=== PATIENT | male | born 1950 | race Two or more races ===

== ENCOUNTER 2024-03-27 15:38 | Emergency (ER) | payer MEDICARE, OTHER, SELFPAY ==
[2024-03-27 15:43] VITALS: BP 127/90
[2024-03-27 16:55] VITALS: BMI 29.8
[2024-03-27 16:57] VITALS: BP 121/98
[2024-03-27 17:00] VITALS: BP 128/93
--- NOTE | 2024-03-27 17:11 | EDRN ---
Pt brought to ER room from triage in wheelchair. Pt reports feeling SOB at rest that worsens with activity. Pt reports that he have been feeling like he is unable to catch his breath, pt placed on 1 L NC for comfort. Pt sating at 98% on RA, but
reports feeling like her is unable to catch his breath. Repeat EKG order d/t marlen noted on tele monitor.
[2024-03-27 17:18] LABS: % Basophils 0.6 % (0-2); % Eosinophils 0.1 % (0-6); % Immature Granulocytes 0.2 % (0-0.5); % Lymphocytes 32.3 % (20.5-51.1); % Monocytes 6.2 % (1.7-9.3); % Neutrophils 60.6 % (42.2-75.2); Absolute Basophils 0.1 10^3/uL (0-0.2); Absolute Lymphocytes 2.7 10^3/uL (1.2-3.4); Absolute Monocytes 0.5 10^3/uL (0.1-0.6); Absolute Neutrophils 5.1 10^3/uL (1.4-6.5); Hematocrit 46.3 % (39.0-52.0); Hemoglobin 17.3 g/dL (13.0-18.0); Mean Corp Hgb Conc. 37.4 g/dL (33.0-37.0); Mean Corpuscular Hgb 33.1 pg (27.0-31.0); Mean Corpuscular Volume 88.7 fL (80.0-94.0); Mean Platelet Volume 9.2 fL (7.4-10.4); Nucleated Red Blood Cells % 0 % (-); Platelet Count 275 10^3/uL (130-400); Red Blood Cell Count 5.22 10^6/uL (4.70-6.10); Red Cell Dist. Width 12.3 % (11.5-14.5); White Blood Cell Count 8.4 10^3/uL (4.8-10.8)
[2024-03-27 17:37] LABS: NT-proBNP 358 pg/ml
[2024-03-27 17:42] LABS: ALT (SGPT) 23 U/L (0-50); AST (SGOT) 30 U/L (17-59); Albumin 4.3 g/dl (3.5-5.0); Alkaline Phosphatase 62 U/L (38-126); Blood Urea Nitrogen 14 mg/dl (9-20); Calcium 9.6 mg/dl (8.4-10.2); Carbon Dioxide 19 mmol/L (22-30); Chloride 107 mmol/L (98-107); Estimated Creatinine Clearance 86 ml/min; Glucose 103 mg/dl (70-99); Potassium 4.1 mmol/L (3.5-5.1); Sodium 136 mmol/L (135-145); Total Bilirubin 1.2 mg/dl (0.2-1.3); eGFR > 60.00
[2024-03-27 17:46] LABS: Troponin I < 0.012 ng/ml
[2024-03-27 17:58] LABS: TSH Reflex To Free T4 1.13 uIU/ml (0.47-4.68)
--- NOTE | 2024-03-27 18:15 | ED.GENMED ---
History of Present Illness
General
Chief Complaint: Heart Rate Problem
Source: patient
Exam Limitations: none
Time Seen by Provider: 03/27/24 18:00
History of Present Illness
History of Present Illness:
73-year-old male with history of paroxysmal atrial fibrillation presents feeling as though he went into an episode of atrial fibrillation this morning after his couple coffee. He states he felt a rapid heartbeat and was short of breath. His smart
watch told him he was in atrial fibrillation. He is not anticoagulated. He follows with [facility] cardiology. He denies chest pain. He states that the current time of my exam he feels fine. He does not feel palpitations or
shortness of breath. He denies chest pain. No other complaints at this time. He denies any recent travel or surgery no leg swelling or calf pain
Past History
Past History
ED Past Medical History: Arrthythmia and HTN (Previously)
ED Past Surgical History: Cholecystectomy and Orthopedic
Social History
Tobacco: Non-smoker
Employment: Retired
Family History
Family History: Negative Early CAD
Phy Exam
Physical Exam
Physical Exam:
General: Well-appearing male no acute respiratory distress
HEENT: Normocephalic atraumatic
Heart: Regular rate and rhythm no murmurs
Lungs: Clear no wheeze
Extremities: No cyanosis or edema
Skin: Warm no rash
Course
Orders/Labs/Results
Orders:
Orders
03/27/24 15:45
ECG [Electrocardiogram (*1)] Urgent
Reason for Study: Shortness of Breath
EKG- Treatment ONCE
03/27/24 17:04
Complete Blood Count/With Diff Urgent
Comprehensive Metabolic Panel Urgent
Pro-BNP [NT-proBNP] Urgent
TSH Reflex To Free T4 Urgent
Troponin I Urgent
Comment: ADD ON
03/27/24 17:10
Add On- LAB Urgent
Tests Added?: trop
Electrocardiogram (*1) Urgent
Reason for Study: Other
Other Reason for Exam: arrthymia
EKG- Treatment ONCE
Abnormal Lab Results
03/27/24
17:04
MCH 33.1 H pg
(27.0-31.0)
MCHC 37.4 H g/dL
(33.0-37.0)
Carbon Dioxide 19 L mmol/L
(22-30)
Glucose 103 H mg/dl
(70-99)
03/27/24 17:04
03/27/24 17:04
Vital Signs
Initial and Last Documented VS:
Initial Vital Signs
Temp Pulse Resp BP Pulse Ox
97.7 F 85 18 127/90 100
03/27/24 15:43 03/27/24 15:43 03/27/24 15:43 03/27/24 15:43 03/27/24 15:43
Last Documented Vital Signs
Temp Pulse Resp BP Pulse Ox
97.7 F 87 15 128/93 100
03/27/24 15:43 03/27/24 17:00 03/27/24 17:00 03/27/24 17:00 03/27/24 17:00
MDM/Problems Addressed
Differential Diagnosis Includes:
Patient presented with palpitations and the sensation of atrial fibrillation. Initial EKG showed sinus rhythm with PVCs. Repeat EKG following that also demonstrates sinus rhythm. He has been in sinus rhythm the entire time has been on the
monitor. There are occasional PVCs. He is not hypoxic he is rate controlled. Labs were ordered which were reviewed demonstrate negative troponin and BNP. Symptomatically patient has no complaints currently. Do not suspect ACS. Without symptoms
currently do not suspect PE. 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 No need for any further intervention. Stable for discharge.
*Critical Care Note
Total Time (30-74mins, 75-104mins- exclusive of procedures): Not Applicable
ED Attending Note
-
Portions of this chart may have been created with voice recognition software.� Occasional wrong word or��sound alike� substitutions may have occurred due to the inherent limitations of voice recognition software.
Discharge Plan
Departure
Patient Disposition: Home (Routine Discharge)
Date of Disposition: 03/27/24
Time of Disposition: 18:18
Patient with high blood pressure during this ER visit?: No
Discharge Problem:
Palpitations
Instructions: Atrial Fibrillation (DC)
Prescriptions:
No Action
alprazolam 0.25 MG tablet
0.25 mg PO HS
lansoprazole [Prevacid] 30 MG capsule,delayed release(DR/EC)
30 mg PO DAILY
magnesium 250 MG tablet
500 mg PO DAILY
irbesartan 300 MG tablet
300 mg PO DAILY
solifenacin [Vesicare] 10 MG tablet
10 mg PO DAILY
xuopstnb-vsp-EO-lycopen-lutein [Centrum Silver] 1 EACH tablet
1 ea PO DAILY
cholecalciferol (vitamin D3) [Vitamin D3] 2,000 UNIT capsule
1 cap PO BID
acetaminophen 325 MG tablet
650 mg PO Q4HPRN PRN (Reason: mild pain) Qty: 0 0RF
aspirin 325 MG tablet,delayed release (DR/EC)
325 mg PO DAILY Qty: 0 0RF
docusate sodium 100 MG capsule
100 mg PO BID Qty: 0 0RF
oxycodone 5 MG tablet
5 mg PO Q4HPRN PRN (Reason: moderate to severe pain) Qty: 90 0RF
Rx Instructions:
1 to 2 tabs every 4 hours as needed
oxycodone 5 MG tablet
5 mg PO Q4HPRN PRN (Reason: moderate to severe pain) Qty: 14 0RF
Referrals:
Néstor Franco MD [Family Provider] -
Activity Restrictions/Additional Instructions:
Rest. Stay hydrated. Limit caffeine. Return if worse, otherwise follow up with recreation establishment manager as planned.
Interventions
Interventions:
*Risk Screen - Suicide Last Done: 03/27/24 16:55
*General Assessment Last Done: 03/27/24 16:55
*Neglect/Abuse Screening Last Done: 03/27/24 16:55
ED- Cardiac Assessment Last Done: 03/27/24 17:07
ED- Pulmonary Assessment Last Done: 03/27/24 17:07
Discharge Date and Time
Print Language: MONGOLIAN
[2024-03-27 18:20] VITALS: BP 152/93
== END 2024-03-27 18:28 | disposition home or self-care (01) ==
LOC: EMR 15:38
PROVIDERS: EMERGENCY PHYSICIAN Emergency Medicine; FAMILY PHYSICIAN Family Medicine
DX: R00.2 Palpitations (principal); I48.0 Paroxysmal atrial fibrillation
CPT/HCPCS: 99284; 80053; 83880; 84443; 84484; 85025; 93005

== ENCOUNTER → 2025-03-18 14:42 | Outpatient (REF) | payer MEDICARE, OTHER, SELFPAY | LOC: MRI 3T 14:42 | PROVIDERS: ATTENDING PHYSICIAN Urology; FAMILY PHYSICIAN Family Medicine | DX: R97.20 Elevated prostate specific antigen [PSA] (principal) | CPT/HCPCS: 72197; A9575 ==